=== PATIENT | male | born 1950 | race Caucasian/White ===

== ENCOUNTER 2021-10-19 08:13 | Outpatient (CLI) | payer MEDICARE, OTHER | END 2021-10-19 08:14 | disposition home or self-care (01) | LOC: CSHWCC 08:13 | PROVIDERS: ATTEND Nurse Practitioner Family | DX: T81.89XA Other complications of procedures, not elsewhere classified, initial encounter (principal) ==

== ENCOUNTER 2021-11-20 08:31 | Outpatient (CLI) | payer MEDICARE, OTHER | END 2021-11-20 08:32 | disposition home or self-care (01) | LOC: CSHWCC 08:31 | PROVIDERS: ATTEND Nurse Practitioner Family | DX: T81.89XD Other complications of procedures, not elsewhere classified, subsequent encounter (principal) | CPT/HCPCS: 97605 ==

== ENCOUNTER 2021-12-08 10:54 | Outpatient (CLI) | payer MEDICARE, OTHER | END 2021-12-08 10:55 | disposition home or self-care (01) | LOC: CSHWCC 10:54 | PROVIDERS: ATTEND Nurse Practitioner Family | DX: T81.89XD Other complications of procedures, not elsewhere classified, subsequent encounter (principal) | CPT/HCPCS: 87070; 87077; 87186; 87205; 97605 ==

== ENCOUNTER 2022-07-07 10:41 | Outpatient (CLI) | payer MEDICARE, OTHER | END 2022-07-07 10:42 | disposition home or self-care (01) | LOC: CSHWCC 10:41 | PROVIDERS: ATTEND Nurse Practitioner Family | DX: T81.89XD Other complications of procedures, not elsewhere classified, subsequent encounter (principal) | CPT/HCPCS: 88305 ==

== ENCOUNTER 2022-08-11 13:28 | Outpatient (CLI) | payer MEDICARE, OTHER | END 2022-08-11 13:29 | disposition home or self-care (01) | LOC: CSHWCC 13:28 | PROVIDERS: ATTEND Nurse Practitioner Family | DX: T81.89XD Other complications of procedures, not elsewhere classified, subsequent encounter (principal) ==

== ENCOUNTER 2022-09-01 13:18 | Outpatient (CLI) | payer MEDICARE, OTHER | END 2022-09-01 13:19 | disposition home or self-care (01) | LOC: CSHWCC 13:18 | PROVIDERS: ATTEND Nurse Practitioner Family | DX: T81.89XD Other complications of procedures, not elsewhere classified, subsequent encounter (principal) | CPT/HCPCS: 11042 ==

== ENCOUNTER 2022-09-29 10:09 | Outpatient (CLI) | payer MEDICARE | END 2022-09-29 10:10 | disposition home or self-care (01) | LOC: CSHWCC 10:09 | PROVIDERS: ATTEND Nurse Practitioner Family | DX: T81.89XA Other complications of procedures, not elsewhere classified, initial encounter (principal) | CPT/HCPCS: 97139; G0463; 99212 ==

== ENCOUNTER 2022-11-23 10:00 | Outpatient (CLI) | payer MEDICARE | END 2022-11-23 10:01 | disposition home or self-care (01) | LOC: CSHWCC 10:00 | PROVIDERS: ATTEND Nurse Practitioner Family | DX: L92.3 Foreign body granuloma of the skin and subcutaneous tissue (principal); L99 Other disorders of skin and subcutaneous tissue in diseases classified elsewhere ==

== ENCOUNTER 2023-04-25 13:08 | Outpatient (CLI) | payer MEDICARE, OTHER | END 2023-04-25 13:09 | disposition home or self-care (01) | LOC: CSHWCC 13:08 | PROVIDERS: ATTEND Nurse Practitioner Family | DX: S31.000D Unspecified open wound of lower back and pelvis without penetration into retroperitoneum, subsequent encounter (principal) | CPT/HCPCS: 11042 ==

== ENCOUNTER 2023-05-23 13:07 | Outpatient (CLI) | payer MEDICARE, OTHER | END 2023-05-23 13:08 | disposition home or self-care (01) | LOC: CSHWCC 13:07 | PROVIDERS: ATTEND Physician Assistant | DX: S31.000D Unspecified open wound of lower back and pelvis without penetration into retroperitoneum, subsequent encounter (principal) | CPT/HCPCS: 97602 ==

== ENCOUNTER 2023-06-20 13:13 | Outpatient (CLI) | payer MEDICARE, OTHER | END 2023-06-20 13:14 | disposition home or self-care (01) | LOC: CSHWCC 13:13 | PROVIDERS: ATTEND Physician Assistant | DX: S31.000D Unspecified open wound of lower back and pelvis without penetration into retroperitoneum, subsequent encounter (principal) | CPT/HCPCS: 97602 ==

== ENCOUNTER 2023-08-01 08:37 | Outpatient (CLI) | payer MEDICARE | END 2023-08-01 08:38 | disposition home or self-care (01) | LOC: CSHWCC 08:37 | PROVIDERS: ATTEND Physician Assistant | DX: S31.000D Unspecified open wound of lower back and pelvis without penetration into retroperitoneum, subsequent encounter (principal) | CPT/HCPCS: 99213; G0463 ==

== ENCOUNTER 2024-01-20 14:35 | Outpatient (CLI) | payer MEDICARE, OTHER | END 2024-01-20 14:36 | disposition home or self-care (01) | LOC: CSHWCC 14:35 | PROVIDERS: ATTEND Nurse Practitioner Family | DX: T81.31XD Disruption of external operation (surgical) wound, not elsewhere classified, subsequent encounter (principal); L59.8 Other specified disorders of the skin and subcutaneous tissue related to radiation; D61.818 Other pancytopenia; A31.2 Disseminated mycobacterium avium-intracellulare complex (DMAC) | CPT/HCPCS: 97597 ==

== ENCOUNTER 2024-02-03 14:51 | Outpatient (CLI) | payer MEDICARE, OTHER | END 2024-02-03 14:52 | disposition home or self-care (01) | LOC: CSHWCC 14:51 | PROVIDERS: ATTEND Preventive Medicine Undersea and Hyperbaric Medicine | DX: T81.31XD Disruption of external operation (surgical) wound, not elsewhere classified, subsequent encounter (principal); L59.8 Other specified disorders of the skin and subcutaneous tissue related to radiation; D61.818 Other pancytopenia; A31.2 Disseminated mycobacterium avium-intracellulare complex (DMAC) | CPT/HCPCS: 99213; G0463 ==

== ENCOUNTER 2024-02-17 11:53 | Outpatient (CLI) | payer MEDICARE, OTHER | END 2024-02-17 11:54 | disposition home or self-care (01) | LOC: CSHWCC 11:53 | PROVIDERS: ATTEND Nurse Practitioner Family | DX: T81.31XD Disruption of external operation (surgical) wound, not elsewhere classified, subsequent encounter (principal); L59.8 Other specified disorders of the skin and subcutaneous tissue related to radiation; D61.818 Other pancytopenia; A31.2 Disseminated mycobacterium avium-intracellulare complex (DMAC) | CPT/HCPCS: 11042; 97597 ==

== ENCOUNTER 2024-05-31 14:02 | Outpatient (CLI) | payer MEDICARE, OTHER | END 2024-05-31 14:03 | disposition home or self-care (01) | LOC: CSHWCC 14:02 | PROVIDERS: ATTEND Nurse Practitioner Family | DX: T81.31XD Disruption of external operation (surgical) wound, not elsewhere classified, subsequent encounter (principal); L59.8 Other specified disorders of the skin and subcutaneous tissue related to radiation; D61.818 Other pancytopenia; A31.2 Disseminated mycobacterium avium-intracellulare complex (DMAC) | CPT/HCPCS: 11042 ==

== ENCOUNTER 2024-06-14 14:30 | Outpatient (CLI) | payer MEDICARE, OTHER | END 2024-06-14 14:31 | disposition home or self-care (01) | LOC: CSHWCC 14:30 | PROVIDERS: ATTEND Nurse Practitioner Family | DX: T81.31XD Disruption of external operation (surgical) wound, not elsewhere classified, subsequent encounter (principal); L59.8 Other specified disorders of the skin and subcutaneous tissue related to radiation; D61.818 Other pancytopenia; A31.2 Disseminated mycobacterium avium-intracellulare complex (DMAC) | CPT/HCPCS: 11042 ==

== ENCOUNTER 2024-07-05 15:25 | Outpatient (CLI) | payer MEDICARE, OTHER | END 2024-07-05 15:26 | disposition home or self-care (01) | LOC: CSHWCC 15:25 | PROVIDERS: ATTEND Nurse Practitioner Family | DX: T81.31XD Disruption of external operation (surgical) wound, not elsewhere classified, subsequent encounter (principal); L59.8 Other specified disorders of the skin and subcutaneous tissue related to radiation; D61.818 Other pancytopenia; A31.2 Disseminated mycobacterium avium-intracellulare complex (DMAC) | CPT/HCPCS: 11042 ==